=== PATIENT | female | born 1960 | race Caucasian/White ===

== ENCOUNTER → 2018-06-11 07:37 | Outpatient (CLI) | payer MEDICARE, SELFPAY ==
[2017-02-18 11:18] VITALS: BMI 37.9
--- NOTE | 2018-06-11 07:44 | CT_ITS ---
STUDY: CTA NECK WITH CONTRAST REASON FOR EXAM: Female, 58 years old. Left carotid bruit. Prior left carotid endarterectomy. RADIATION DOSAGE (If Supplied By Facility): CTDIvol = ( 22.30 ) mGy, DLP = ( 654.52 ) mGycm TECHNIQUE: CT angiography with multi-detector data acquisition was performed from the aortic arch to the skull base following intravenous administration of 100CC ml of Isovue 370 contrast. MIP images were reconstructed from the axial data set. Post-processing of the angiographic images was performed, with multiplanar reformation and 3D reconstruction. Individualized dose optimization techniques were used for this CT. COMPARISON: Comparison is made with prior examination dated May 05, 2017. FINDINGS: Prior CABG. There is a 1.4 cm x 1.6 cm predominantly cystic nodule in the left lobe of the thyroid. AORTIC ARCH: There is atherosclerotic calcific plaque formation of the aortic arch and great vessels arising from the aortic arch, without a hemodynamically significant stenosis. There is a normal origin of the brachiocephalic, left common carotid, and left subclavian arteries. RIGHT CAROTID ARTERIES: Normal right common carotid artery (CCA). Normal right common carotid bulb. There is extensive atherosclerotic plaque formation of the origin of the right internal carotid artery with an estimated stenosis of greater than 70%. Normal visualized cervical portion of the right internal carotid artery. Normal origin of the right external carotid artery (ECA). LEFT CAROTID ARTERIES: Normal left common carotid artery (CCA). Normal left common carotid bulb. There is complete occlusion of the origin of the left internal carotid artery without demonstrated arterial flow. Normal visualized cervical portion of the left internal carotid artery. Normal origin of the left external carotid artery (ECA). VERTEBRAL ARTERIES: There is enhancement within the bilateral vertebral arteries with a small right vertebral artery, and a dominant left vertebral artery. Focal nonstenotic plaque is seen in the proximal portion of the left vertebral artery. 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 Greater than 70% stenosis due to calcific plaque at the origin of the right internal carotid artery. Electronically Signed: Ortiz Sahu MD at 9:16 EDT Tel [phone], Service support ,
[2018-06-11 08:01] LABS: CREATININE FINGERSTICK 0.9 mg/dL (0.55-1.02); EGFR FINGERSTICK > 60.0000 mL/min (>60)
== END ==
PROVIDERS: Family Provider Family Medicine; PCP Family Medicine; Visit Provider Surgery Vascular Surgery
DX: Z01.812 Encounter for preprocedural laboratory examination (principal); I65.23 Occlusion and stenosis of bilateral carotid arteries; R09.89 Other specified symptoms and signs involving the circulatory and respiratory systems; I10 Essential (primary) hypertension; I51.9 Heart disease, unspecified; F17.210 Nicotine dependence, cigarettes, uncomplicated; Z86.73 Personal history of transient ischemic attack (TIA), and cerebral infarction without residual deficits
CPT/HCPCS: 70498; Q9967

== ENCOUNTER 2018-06-25 08:05 | Outpatient (RCR) | payer MEDICARE, SELFPAY ==
[2017-02-18 11:18] VITALS: BMI 37.9
[2018-06-16 09:56] LABS: Prothrombin Time Fingerstick 40.8 SEC (11.9-14.4)
[2018-06-25 08:21] LABS: Prothrombin Time Fingerstick 37.3 SEC (11.9-14.4)
== END 2018-06-25 09:00 | disposition home or self-care (01) ==
LOC: MTLAB 08:05
PROVIDERS: Family Provider Family Medicine; PCP Family Medicine; Visit Provider Family Medicine
DX: I48.91 Unspecified atrial fibrillation (principal)
CPT/HCPCS: 36416; 85610

== ENCOUNTER 2018-07-27 09:42 | Outpatient (RCR) | payer MEDICARE, SELFPAY ==
[2017-02-18 11:18] VITALS: BMI 37.9
[2018-07-09 08:56] LABS: Prothrombin Time Fingerstick 35.9 SEC (11.9-14.4)
[2018-07-27 09:56] LABS: Prothrombin Time Fingerstick 29.5 SEC (11.9-14.4)
== END 2018-07-27 11:00 | disposition home or self-care (01) ==
LOC: MTLAB 09:42
PROVIDERS: Family Provider Family Medicine; PCP Family Medicine; Referring Provider Family Medicine; Visit Provider Family Medicine
DX: I48.91 Unspecified atrial fibrillation (principal)
CPT/HCPCS: 36416; 85610

== ENCOUNTER 2018-08-17 08:53 | Outpatient (RCR) | payer MEDICARE, SELFPAY ==
[2017-02-18 11:18] VITALS: BMI 37.9
[2018-08-17 09:06] LABS: Prothrombin Time Fingerstick 32.9 SEC (11.9-14.4)
== END 2018-08-17 09:00 | disposition home or self-care (01) ==
LOC: MTLAB 08:53
PROVIDERS: Family Provider Family Medicine; PCP Family Medicine; Referring Provider Family Medicine; Visit Provider Family Medicine
DX: I48.91 Unspecified atrial fibrillation (principal)
CPT/HCPCS: 36416; 85610

== ENCOUNTER 2018-09-18 09:45 | Outpatient (RCR) | payer MEDICARE, SELFPAY ==
[2017-02-18 11:18] VITALS: BMI 37.9
[2018-09-18 10:06] LABS: Prothrombin Time Fingerstick 24.5 SEC (11.9-14.4)
== END 2018-09-18 10:00 | disposition home or self-care (01) ==
LOC: MTLAB 09:45
PROVIDERS: Family Provider Family Medicine; PCP Family Medicine; Referring Provider Family Medicine; Visit Provider Family Medicine
DX: I48.91 Unspecified atrial fibrillation (principal)
CPT/HCPCS: 36416; 85610

== ENCOUNTER 2018-10-22 09:26 | Outpatient (RCR) | payer MEDICARE, SELFPAY ==
[2017-02-18 11:18] VITALS: BMI 37.9
[2018-10-22 09:46] LABS: Prothrombin Time Fingerstick 28.5 SEC (11.9-14.4)
== END 2018-10-22 11:00 | disposition home or self-care (01) ==
LOC: MTLAB 09:26
PROVIDERS: Family Provider Family Medicine; PCP Family Medicine; Referring Provider Family Medicine; Visit Provider Family Medicine
DX: I48.91 Unspecified atrial fibrillation (principal)
CPT/HCPCS: 36416; 85610

== ENCOUNTER 2018-11-16 09:37 | Outpatient (RCR) | payer MEDICARE, SELFPAY ==
[2017-02-18 11:18] VITALS: BMI 37.9
[2018-11-16 09:51] LABS: Prothrombin Time Fingerstick 31.1 SEC (11.9-14.4)
== END 2018-11-26 15:03 | disposition home or self-care (01) ==
LOC: MTLAB 09:37
PROVIDERS: Family Provider Family Medicine; PCP Family Medicine; Referring Provider Family Medicine; Visit Provider Family Medicine
DX: I48.91 Unspecified atrial fibrillation (principal)
CPT/HCPCS: 36416; 85610

== ENCOUNTER 2018-12-17 08:36 | Outpatient (RCR) | payer MEDICARE, SELFPAY ==
[2017-02-18 11:18] VITALS: BMI 37.9
[2018-12-17 08:51] LABS: Prothrombin Time Fingerstick 30.5 SEC (11.9-14.4)
== END 2018-12-17 09:00 | disposition home or self-care (01) ==
LOC: MTLAB 08:36
PROVIDERS: Family Provider Family Medicine; PCP Family Medicine; Referring Provider Family Medicine; Visit Provider Family Medicine
DX: I48.91 Unspecified atrial fibrillation (principal)
CPT/HCPCS: 36416; 85610

== ENCOUNTER 2019-01-11 09:44 | Outpatient (RCR) | payer MEDICARE, SELFPAY ==
[2017-02-18 11:18] VITALS: BMI 37.9
[2019-01-11 10:01] LABS: Prothrombin Time Fingerstick 28.1 SEC (11.9-14.4)
== END 2019-01-26 16:00 | disposition home or self-care (01) ==
LOC: MTLAB 09:44
PROVIDERS: Family Provider Family Medicine; PCP Family Medicine; Referring Provider Family Medicine; Visit Provider Family Medicine
DX: I48.91 Unspecified atrial fibrillation (principal)
CPT/HCPCS: 36416; 85610

== ENCOUNTER 2019-02-08 09:27 | Outpatient (RCR) | payer MEDICARE, SELFPAY ==
[2017-02-18 11:18] VITALS: BMI 37.9
[2019-02-08 09:46] LABS: Prothrombin Time Fingerstick 28.1 SEC (11.9-14.4)
== END 2019-02-08 11:00 | disposition home or self-care (01) ==
LOC: MTLAB 09:27
PROVIDERS: Family Provider Family Medicine; PCP Family Medicine; Referring Provider Family Medicine; Visit Provider Family Medicine
DX: I48.91 Unspecified atrial fibrillation (principal)
CPT/HCPCS: 36416; 85610

== ENCOUNTER 2019-03-08 09:41 | Outpatient (RCR) | payer MEDICARE, SELFPAY ==
[2017-02-18 11:18] VITALS: BMI 37.9
[2019-03-08 09:56] LABS: Prothrombin Time Fingerstick 28.1 SEC (11.9-14.4)
== END 2019-03-08 10:00 | disposition home or self-care (01) ==
LOC: MTLAB 09:41
PROVIDERS: Family Provider Family Medicine; PCP Family Medicine; Referring Provider Family Medicine; Visit Provider Family Medicine
DX: I48.91 Unspecified atrial fibrillation (principal)
CPT/HCPCS: 36416; 85610

== ENCOUNTER 2019-04-05 09:09 | Outpatient (RCR) | payer MEDICARE, SELFPAY ==
[2017-02-18 11:18] VITALS: BMI 37.9
[2019-04-05 09:31] LABS: Prothrombin Time Fingerstick 29.9 SEC (11.9-14.4)
== END 2019-04-05 09:30 | disposition home or self-care (01) ==
LOC: MTLAB 09:09
PROVIDERS: Family Provider Family Medicine; PCP Family Medicine; Referring Provider Family Medicine; Visit Provider Family Medicine
DX: I48.91 Unspecified atrial fibrillation (principal); Z79.01 Long term (current) use of anticoagulants
CPT/HCPCS: 36416; 85610

== ENCOUNTER 2019-05-03 09:22 | Outpatient (RCR) | payer MEDICARE, SELFPAY ==
[2017-02-18 11:18] VITALS: BMI 37.9
== END 2019-05-03 10:22 | disposition home or self-care (01) ==
LOC: MTLAB 09:22
PROVIDERS: Family Provider Family Medicine; PCP Family Medicine; Referring Provider Family Medicine; Visit Provider Family Medicine
DX: I48.91 Unspecified atrial fibrillation (principal); Z79.01 Long term (current) use of anticoagulants
CPT/HCPCS: 36416; 85610

== ENCOUNTER → 2019-06-29 09:44 | Outpatient (CLI) | payer MEDICARE, SELFPAY ==
[2017-02-18 11:18] VITALS: BMI 37.9
--- NOTE | 2019-06-29 09:46 | CDU_ITS ---
Reason For Study: stroke Rt. Velocities/BP Lt. Velocities/BP Prox CCA 85.2/20.0 cm/sec. Prox CCA 124.7/17.0 cm/sec. Mid CCA 78.6/23.9 cm/sec. Mid CCA 112.0/18.8 cm/sec. Dist CCA 87.8/14.7 cm/sec. Dist CCA 110.1/24.3 cm/sec. Prox ICA 167.4/53.3 cm/sec. Prox ECA 144.8/13.3 cm/sec. Mid ICA 346.4/134.5 cm/sec. Lt. Vert. 55.3/23.4 cm/sec. Dist ICA 4.4 cm/sec. Prox ECA 198.2/13.8 cm/sec. Rt. Vert. 35.5/6.9 cm/sec. Right Extracranial There is heterogeneous, irregular atherosclerotic plaque noted in the right common carotid artery. There is heterogeneous, irregular atherosclerotic plaque noted in the right internal carotid artery. There is heterogeneous, irregular atherosclerotic plaque noted in the right external carotid artery. Antegrade flow is noted in the right vertebral artery. There is heterogeneous, irregular atherosclerotic plaque noted in the right bulb. Left Extracranial There is heterogeneous, irregular atherosclerotic plaque noted in the left common carotid artery. There is heterogeneous, irregular atherosclerotic plaque noted in the left internal carotid artery. There is heterogeneous, irregular atherosclerotic plaque noted in the left external carotid artery. Antegrade flow is noted in the left vertebral artery. There is heterogeneous, irregular atherosclerotic plaque noted in the left bulb. Procedure Carotid Duplex 30307. The exam was diagnostic. Prelim called to Dr. Child. Exam performed in department. Interpretation Summary Severe (>70%) stenosis right extracranial internal carotid. The left internal carotid artery appears to be totally occluded. Flow within the vertebral arteries is antegrade bilaterally. Ordering Physician: Momo Child Performed By: Sebastian Briceno RVT
--- NOTE | 2019-06-29 09:47 | ART_ITS ---
Reason For Study: atherosclerosis with claudication Procedure A bilateral lower extremity continuous wave Doppler with analog waveform analysis and ankle brachial indexes. Prelim called to Dr. Child. Left Segmental Pressures Left brachial= 134mmHg. Left posterior tibial artery = 87mmHg. Left dorsalis pedis artery = 84mmHg. Left digit = 48 mmHg. The left dorsalis pedis waveforms are monophasic. The left posterior tibial artery waveforms are monophasic. Right Segmental Pressures Right brachial= 121mmHg. Right posterior tibial artery = 67mmHg. Right dorsalis pedis artery = 60mmHg. Right digit = 42 mmHg. The right dorsalis pedis waveforms are monophasic. The right posterior tibial artery waveforms are monophasic. Indices The right ankle brachial index by the dorsalis pedis is .45. The right ankle brachial index by the posterior tibial artery is .5. The right digital-brachial index is .31. The left ankle brachial index by the dorsalis pedis is .63. The left ankle brachial index by the posterior tibial artery is .65. The left digital-brachial index is .36. Interpretation Summary 1. bilateral moderate arterial occlussive diase wiht an JESSICA 0.5 and 0.65. Ordering Physician: Momo Child Performed By: FERN GAGNON T
== END ==
PROVIDERS: Family Provider Family Medicine; PCP Family Medicine; Referring Provider Surgery Vascular Surgery; Visit Provider Surgery Vascular Surgery
DX: R09.89 Other specified symptoms and signs involving the circulatory and respiratory systems (principal); F17.210 Nicotine dependence, cigarettes, uncomplicated; I11.9 Hypertensive heart disease without heart failure; I65.23 Occlusion and stenosis of bilateral carotid arteries; I70.213 Atherosclerosis of native arteries of extremities with intermittent claudication, bilateral legs; Z86.73 Personal history of transient ischemic attack (TIA), and cerebral infarction without residual deficits; I48.91 Unspecified atrial fibrillation; Z79.01 Long term (current) use of anticoagulants
CPT/HCPCS: 36416; 85610; 93880; 93922

== ENCOUNTER 2019-07-21 09:53 | Outpatient (RCR) | payer MEDICARE, SELFPAY ==
[2017-02-18 11:18] VITALS: BMI 37.9
[2019-07-21 10:01] LABS: Prothrombin Time Fingerstick 24.9 SEC (11.9-14.4)
== END 2019-07-21 18:00 | disposition home or self-care (01) ==
LOC: MTLAB 09:53
PROVIDERS: Family Provider Family Medicine; PCP Family Medicine; Referring Provider Family Medicine; Visit Provider Family Medicine
DX: I48.91 Unspecified atrial fibrillation (principal); Z79.01 Long term (current) use of anticoagulants
CPT/HCPCS: 36416; 85610

== ENCOUNTER → 2019-07-31 10:14 | Outpatient (CLI) | payer MEDICARE, SELFPAY ==
[2017-02-18 11:18] VITALS: BMI 37.9
[2019-07-31 11:53] LABS: Creatinine, Serum 0.67 mg/dL (0.55-1.02); EST Glomerular Filtration Rate 97 mL/min (>60); Est Glom Filt Rate - Afr Amer 117 mL/min (>60)
== END ==
PROVIDERS: Family Provider Family Medicine; PCP Family Medicine; Referring Provider Surgery Vascular Surgery; Visit Provider Surgery Vascular Surgery
DX: I65.23 Occlusion and stenosis of bilateral carotid arteries (principal); R09.89 Other specified symptoms and signs involving the circulatory and respiratory systems
CPT/HCPCS: 36415; 82565

== ENCOUNTER 2019-08-12 10:57 | Outpatient (RCR) | payer MEDICARE, SELFPAY ==
[2017-02-18 11:18] VITALS: BMI 37.9
[2019-08-12 12:38] LABS: Prothrombin Time Fingerstick 26.1 SEC (11.9-14.4)
== END 2019-08-12 18:00 | disposition home or self-care (01) ==
LOC: MTLAB 10:57
PROVIDERS: Family Provider Family Medicine; PCP Family Medicine; Referring Provider Family Medicine; Visit Provider Family Medicine
DX: I48.91 Unspecified atrial fibrillation (principal)
CPT/HCPCS: 36416; 85610

== ENCOUNTER → 2019-08-13 08:05 | Outpatient (CLI) | payer MEDICARE, SELFPAY ==
[2017-02-18 11:18] VITALS: BMI 37.9
--- NOTE | 2019-08-13 08:08 | CT_ITS ---
STUDY: CTA NECK WITH CONTRAST REASON FOR EXAM: Female, 59 years old. Carotid bruit. History of prior left carotid endarterectomy. RADIATION DOSAGE (If Supplied By Facility): CTDIvol = ( 22.72 ) mGy, DLP = ( 695.31 ) mGycm TECHNIQUE: CT angiography with multi-detector data acquisition was performed from the aortic arch to the skull base following intravenous administration of IV Isovue 370 100mL. MIP images were reconstructed from the axial data set. Post-processing of the angiographic images was performed, with multiplanar reformation and 3D reconstruction. Individualized dose optimization techniques were used for this CT. COMPARISON: Comparison is made with prior examination dated June 11, 2018. FINDINGS: There is a 9.1 mm hypodensity in the left lobe of the thyroid. AORTIC ARCH: There is atherosclerotic calcific plaque formation of the aortic arch and great vessels arising from the aortic arch, without a hemodynamically significant stenosis. Nonstenotic atherosclerotic calcific plaque at the origin of the left subclavian artery and right brachiocephalic artery. RIGHT CAROTID ARTERIES: Normal right common carotid artery (CCA). Normal right common carotid bulb. There is extensive atherosclerotic plaque formation of the origin of the right internal carotid artery with an estimated stenosis of greater than 70%. Normal visualized cervical portion of the right internal carotid artery. Normal origin of the right external carotid artery (ECA). LEFT CAROTID ARTERIES: Normal left common carotid artery (CCA). Normal left common carotid bulb. There is complete occlusion of the origin of the left internal carotid artery without demonstrated arterial flow. There is complete occlusion of the origin of the left external carotid artery without demonstrated arterial flow. VERTEBRAL ARTERIES: Nonstenotic calcific plaque in the proximal portion of the left vertebral artery. Dominant left vertebral artery. CT/CTA Neck W/WO Contrast IMPRESSION: Complete occlusion of the left internal carotid artery at its origin. Greater than 70% stenosis at the origin of the right internal carotid artery. Electronically Signed: Ortiz Sahu, at 10:32 EST , Service support ,
== END ==
PROVIDERS: Family Provider Family Medicine; PCP Family Medicine; Referring Provider Surgery Vascular Surgery; Visit Provider Surgery Vascular Surgery
DX: R09.89 Other specified symptoms and signs involving the circulatory and respiratory systems (principal); I65.23 Occlusion and stenosis of bilateral carotid arteries
CPT/HCPCS: 70498; Q9967

== ENCOUNTER 2019-09-10 07:12 | Outpatient (RCR) | payer MEDICARE, SELFPAY ==
[2017-02-18 11:18] VITALS: BMI 37.9
[2019-09-10 15:06] LABS: Prothrombin Time Fingerstick 27.9 SEC (11.9-14.4)
== END 2019-09-10 18:00 | disposition home or self-care (01) ==
LOC: MTLAB 07:12
PROVIDERS: Family Provider Family Medicine; PCP Family Medicine; Referring Provider Family Medicine; Visit Provider Family Medicine
DX: I48.91 Unspecified atrial fibrillation (principal)
CPT/HCPCS: 36416; 85610

== ENCOUNTER → 2019-10-13 06:34 | Outpatient (CLI) | payer MEDICARE, SELFPAY ==
[2017-02-18 11:18] VITALS: BMI 37.9
[2019-09-24 11:19] VITALS: BMI 41.6
--- NOTE | 2019-10-13 06:34 | ECHOCS_ITS ---
Reason For Study: S/P CABG Procedure This was a 2D Doppler, Color Flow transthoracic echocardiogram. The study was technically difficult. Contrast injection was performed. Exam performed in department. Left Ventricle Normal LV size. Left ventricular systolic function is normal. The estimated ejection fraction is 55 %. No regional wall motion abnormalities noted. Right Ventricle Normal RV size. Normal systolic function. Atria Normal left atrium. Normal right atrium. Mitral Valve Mitral valve not well visualized. Tricuspid Valve The tricuspid valve is not well visualized. Mild (1+) tricuspid valve insufficiency. Pulmonary artery systolic pressure is 36 mmHg. Aortic Valve Trisinus/trileaflet aortic valve. Mild focal aortic valve calcification. Pulmonic Valve The pulmonic valve is not well visualized. Great Vessels Normal aortic root. Pericardium/Pleural No pericardial effusion. Medication Diluted definity 5.0ml given slow IV push to enhance endocardial definition. MMode/2D Measurements & Calculations LVIDd: 4.8 cm IVSd: 0.95 cm LVOT diam: 2.0 cm LVIDs: 3.5 cm LVPWd: 1.0 cm RVDd: 4.0 cm FS: 27.2 % LVOT area: 3.0 cm2 Ao root diam: 3.3 cm LAV(MOD-bp): 51.8 ml LVAd ap4: 31.3 cm2 LAV(MOD-bp) Indexed: 23.4 ml/m2 EDV(MOD-sp4): 105.2 ml LAV(MOD-sp2): 57.5 ml EDV(sp4-el): 108.4 ml LAV(MOD-sp4): 45.1 ml LVAs ap4: 18.6 cm2 ESV(MOD-sp4): 43.9 ml ESV(sp4-el): 45.7 ml EF(MOD-sp4): 58.2 % EF(sp4-el): 57.9 % SV(MOD-sp4): 61.2 ml SV(sp4-el): 62.7 ml LA A4 area: 17.1 cm2 LA dimension(2D): 5.4 cm RA A4 area: 16.5 cm2 Doppler Measurements & Calculations Ao V2 max: 149.9 cm/sec LV V1 max: 101.3 cm/sec PA V2 max: 100.5 cm/sec Ao max P.0 mmHg LV V1 max P.1 mmHg NORMA(V,D): 2.0 cm2 TR max korin: 283.2 cm/sec TR max P.8 mmHg Interpretation Summary Normal LV size. Left ventricular systolic function is normal. The estimated ejection fraction is 55 %. Mild focal aortic valve calcification. Pulmonary artery systolic pressure is 36 mmHg. Contrast injection was performed. Ordering Physician: Orville Tsai Referring Physician: INDIA TAN By: Katelyn Jean Baptiste, PRICECS, RVT
--- NOTE | 2019-10-13 14:24 | STRESSREP ---
Stress Test Report Pharmacologic myocardial perfusion stress test. 59-year-old lady with a history of diabetes status post coronary artery bypass surgery. Previous stress test had demonstrated evidence of apical ischemia. Stress protocol: Resting EKG demonstrates atrial fibrillation with a rate of 85 bpm normal intervals are noted resting blood pressure is 140/80 mmHg. 0.4 mg of regadenoson was infused per usual protocol followed Intravenous and flush injection continuous telegraph office telephone clerk was performed. The maximum heart rate attained was 100 bpm which was 61% of maximum predicted heart rate the maximum workload was 1 metabolic equivalent. At rest there were no ST or T wave changes noted suggest abnormal flow reserve a peak infusion nonspecific ST-T wave changes were noted with no meet the criteria for ischemia. No clinical angina was noted. The resting blood pressure is 140/80 mmHg final blood pressure was 152/70 mmHg. Myocardial perfusion protocol. 14.5 mCi of technetium 99m sestamibi was injected at rest. 0.4 mg of regadenoson was infused per usual protocol peak infusion 45.0 mCi of technetium 99m sestamibi was injected stress images were obtained stress and rest images were reconstructed and compared in the short axis vertical long horizontal long axis. Gated images were also obtained Perfusion SPECT analysis: Review of the stress images demonstrate normal uptake of tracer noted in all areas of the myocardium, except for the apex with reduced perfusion. The resting images similar demonstrate normal uptake of tracer noted in all areas of the myocardium. The above suggests a mild area of ischemia involving the apex. In comparison to the previous stress test the above findings are unchanged. Gated SPECT analysis: The gated ejection fraction is noted to be 61%. Conclusion: Mildly abnormal pharmacologic myocardial perfusion stress test with evidence of apical ischemia. Preserved ejection fraction. In comparison to previous stress test the above is unchanged.
== END ==
LOC: CVS 06:34
PROVIDERS: Family Provider Family Medicine; PCP Family Medicine; Referring Provider Internal Medicine Cardiovascular Disease; Visit Provider Internal Medicine Cardiovascular Disease
DX: I25.810 Atherosclerosis of coronary artery bypass graft(s) without angina pectoris (principal); I25.10 Atherosclerotic heart disease of native coronary artery without angina pectoris; Z95.1 Presence of aortocoronary bypass graft
CPT/HCPCS: 78452; 93017; 93306; A9500; Q9957; A4216; C8929; J2785

== ENCOUNTER 2019-10-15 11:21 | Outpatient (RCR) | payer MEDICARE, SELFPAY ==
[2017-02-18 11:18] VITALS: BMI 37.9
[2019-09-24 11:19] VITALS: BMI 41.6
[2019-10-18 13:56] LABS: Prothrombin Time Fingerstick 26.1 SEC (11.9-14.4)
== END 2019-10-15 18:00 | disposition home or self-care (01) ==
LOC: MTLAB 11:21
PROVIDERS: Family Provider Family Medicine; PCP Family Medicine; Referring Provider Family Medicine; Visit Provider Family Medicine
DX: I48.91 Unspecified atrial fibrillation (principal)
CPT/HCPCS: 36416; 85610

== ENCOUNTER 2019-11-12 09:47 | Outpatient (RCR) | payer MEDICARE, SELFPAY ==
[2017-02-18 11:18] VITALS: BMI 37.9
[2019-09-24 11:19] VITALS: BMI 41.6
== END 2019-11-12 18:00 | disposition home or self-care (01) ==
LOC: MTLAB 09:47
PROVIDERS: Family Provider Family Medicine; PCP Family Medicine; Referring Provider Family Medicine; Visit Provider Family Medicine
DX: I48.91 Unspecified atrial fibrillation (principal)
CPT/HCPCS: 36416; 85610

== ENCOUNTER 2020-01-07 08:06 | Outpatient (RCR) | payer MEDICARE, SELFPAY ==
[2017-02-18 11:18] VITALS: BMI 37.9
[2019-09-24 11:19] VITALS: BMI 41.6
== END 2020-01-27 18:00 | disposition home or self-care (01) ==
LOC: MTLAB 08:06
PROVIDERS: Family Provider Family Medicine; PCP Family Medicine; Referring Provider Family Medicine; Visit Provider Family Medicine
DX: I48.91 Unspecified atrial fibrillation (principal)
CPT/HCPCS: 36416; 85610

== ENCOUNTER 2020-02-04 11:30 | Outpatient (RCR) | payer MEDICARE, SELFPAY ==
[2017-02-18 11:18] VITALS: BMI 37.9
[2019-09-24 11:19] VITALS: BMI 41.6
== END 2020-02-04 18:00 | disposition home or self-care (01) ==
LOC: MTLAB 11:30
PROVIDERS: Family Provider Family Medicine; PCP Family Medicine; Referring Provider Family Medicine; Visit Provider Family Medicine
DX: I48.91 Unspecified atrial fibrillation (principal)
CPT/HCPCS: 36416; 85610

== ENCOUNTER 2020-03-03 10:08 | Outpatient (RCR) | payer MEDICARE, SELFPAY ==
[2017-02-18 11:18] VITALS: BMI 37.9
[2019-09-24 11:19] VITALS: BMI 41.6
[2020-03-06 16:45] LABS: Prothrombin Time Fingerstick 30.6 SEC (11.9-14.4)
== END 2020-03-03 18:00 | disposition home or self-care (01) ==
LOC: MTLAB 10:08
PROVIDERS: Family Provider Family Medicine; PCP Family Medicine; Referring Provider Family Medicine; Visit Provider Family Medicine
DX: I48.91 Unspecified atrial fibrillation (principal)
CPT/HCPCS: 36416; 85610

== ENCOUNTER 2020-04-28 07:55 | Outpatient (RCR) | payer MEDICARE, SELFPAY ==
[2017-02-18 11:18] VITALS: BMI 37.9
[2019-09-24 11:19] VITALS: BMI 41.6
[2020-04-03 14:55] LABS: Prothrombin Time Fingerstick 30.9 SEC (11.9-14.4)
[2020-05-03 16:36] LABS: Prothrombin Time Fingerstick 23.9 SEC (11.9-14.4)
== END 2020-04-28 18:00 | disposition home or self-care (01) ==
LOC: MTLAB 07:55
PROVIDERS: Family Provider Family Medicine; PCP Family Medicine; Referring Provider Family Medicine; Visit Provider Family Medicine
DX: I48.91 Unspecified atrial fibrillation (principal)
CPT/HCPCS: 36416; 85610

== ENCOUNTER 2020-06-09 08:03 | Outpatient (RCR) | payer MEDICARE, SELFPAY ==
[2017-02-18 11:18] VITALS: BMI 37.9
[2019-09-24 11:19] VITALS: BMI 41.6
[2020-06-09 10:13] LABS: Vitamin D,25 Hydroxy 36.6 ng/mL
[2020-06-09 10:14] LABS: ALB/GLOB Ratio 0.9 RATIO (0.9-2.4); AST(SGOT) 19 U/L (15-37); Alanine Aminotransfer ALT/SGPT 27 U/L (13-56); Albumin, Serum 3.5 g/dL (3.2-5.0); Alkaline Phosphatase 90 U/L (45-117); Anion Gap 7 (5-15); BUN 12 mg/dL (7-18); BUN/Creat Ratio 17.3 RATIO (10-20); Chloride 101 mmol/L (98-107); Cholesterol 211 mg/dL (200); Creatinine, Serum 0.69 mg/dL (0.55-1.02); EST Glomerular Filtration Rate 93 mL/min (>60); Est Glom Filt Rate - Afr Amer 112 mL/min (>60); Glucose 130 mg/dL (74-106); High Density Lipoprotein 38 mg/dL; Potassium 4.1 mmol/L (3.5-5.1); Protein, Total 7.5 g/dL (6.4-8.2); Sodium Level 134 mmol/L (136-145); Triglycerides 194 mg/dL; Very Low Density Lipoprotein 39 mg/dL (5-40)
[2020-06-09 10:24] LABS: International Normalized Ratio 2.1; Prothrombin Time (Protime)PT. 22.7 SECONDS (11.7-14.9)
== END 2020-06-09 18:00 | disposition home or self-care (01) ==
LOC: MTLAB 08:03
PROVIDERS: Family Provider Family Medicine; PCP Family Medicine; Referring Provider Family Medicine; Visit Provider Family Medicine
DX: I48.91 Unspecified atrial fibrillation (principal); E78.2 Mixed hyperlipidemia; E55.9 Vitamin D deficiency, unspecified; I10 Essential (primary) hypertension
CPT/HCPCS: 36415; 80053; 80061; 82306; 85610

== ENCOUNTER 2020-07-13 13:59 | Outpatient (RCR) | payer MEDICARE, SELFPAY ==
[2017-02-18 11:18] VITALS: BMI 37.9
[2019-09-24 11:19] VITALS: BMI 41.6
== END 2020-07-13 18:00 | disposition home or self-care (01) ==
LOC: MTLAB 13:59
PROVIDERS: Family Provider Family Medicine; PCP Family Medicine; Referring Provider Family Medicine; Visit Provider Family Medicine
DX: I48.91 Unspecified atrial fibrillation (principal)
CPT/HCPCS: 36416; 85610

== ENCOUNTER 2020-08-11 07:23 | Outpatient (RCR) | payer MEDICARE, SELFPAY ==
[2017-02-18 11:18] VITALS: BMI 37.9
[2019-09-24 11:19] VITALS: BMI 41.6
[2020-08-11 07:35] LABS: Prothrombin Time Fingerstick 34.7 SEC (11.9-14.4)
== END 2020-08-11 18:00 | disposition home or self-care (01) ==
LOC: MTLAB 07:23
PROVIDERS: Family Provider Family Medicine; PCP Family Medicine; Referring Provider Family Medicine; Visit Provider Family Medicine
DX: I48.91 Unspecified atrial fibrillation (principal)
CPT/HCPCS: 36416; 85610

== ENCOUNTER 2020-09-01 12:56 | Outpatient (RCR) | payer MEDICARE, SELFPAY ==
[2017-02-18 11:18] VITALS: BMI 37.9
[2019-09-24 11:19] VITALS: BMI 41.6
[2020-09-01 13:21] LABS: Prothrombin Time Fingerstick 34.4 SEC (11.9-14.4)
== END 2020-09-01 18:00 | disposition home or self-care (01) ==
LOC: MTLAB 12:56
PROVIDERS: Family Provider Family Medicine; PCP Family Medicine; Referring Provider Family Medicine; Visit Provider Family Medicine
DX: I48.91 Unspecified atrial fibrillation (principal)
CPT/HCPCS: 36416; 85610

== ENCOUNTER 2020-10-02 15:03 | Outpatient (RCR) | payer MEDICARE, SELFPAY ==
[2017-02-18 11:18] VITALS: BMI 37.9
[2019-09-24 11:19] VITALS: BMI 41.6
[2020-10-02 15:26] LABS: Prothrombin Time Fingerstick 32.2 SEC (11.9-14.4)
== END 2020-10-02 18:00 | disposition home or self-care (01) ==
LOC: MTLAB 15:03
PROVIDERS: Family Provider Family Medicine; PCP Family Medicine; Referring Provider Family Medicine; Visit Provider Family Medicine
DX: I48.91 Unspecified atrial fibrillation (principal)
CPT/HCPCS: 36416; 85610

== ENCOUNTER 2020-11-10 09:05 | Outpatient (RCR) | payer MEDICARE, SELFPAY ==
[2017-02-18 11:18] VITALS: BMI 37.9
[2019-09-24 11:19] VITALS: BMI 41.6
[2020-11-10 09:15] LABS: Prothrombin Time Fingerstick 26.1 SEC (11.9-14.4)
== END 2020-11-10 18:00 | disposition home or self-care (01) ==
LOC: MTLAB 09:05
PROVIDERS: Family Provider Family Medicine; PCP Family Medicine; Referring Provider Family Medicine; Visit Provider Family Medicine
DX: I48.91 Unspecified atrial fibrillation (principal)
CPT/HCPCS: 36416; 85610

== ENCOUNTER → 2020-12-22 08:45 | Outpatient (CLI) | payer MEDICARE, SELFPAY ==
[2017-02-18 11:18] VITALS: BMI 37.9
[2019-09-24 11:19] VITALS: BMI 41.6
--- NOTE | 2020-12-22 08:57 | CDU_ITS ---
Reason For Study: STROKE Rt. Velocities/BP Lt. Velocities/BP Prox CCA 82/29 cm/sec. Prox CCA 129/12 cm/sec. Mid CCA 89/21 cm/sec. Mid CCA 122/10 cm/sec. Dist CCA 62/20 cm/sec. Dist CCA 94/18 cm/sec. Prox ICA 81/29 cm/sec. While deleting unwanted images , some Mid ICA 93/40 cm/sec. doppler images of were deleted. Dist ICA 79/29 cm/sec. Velocities are recorded correctly. Rt. ICA/CCA = 1.0. Prox ECA 198/35 cm/sec. Prox ECA 512/220 cm/sec. Lt. Vert. 56/15 cm/sec. Rt. Vert. 46/12 cm/sec. Right Extracranial There is heterogeneous, irregular atherosclerotic plaque noted in the right common carotid artery. There is heterogeneous, smooth atherosclerotic plaque noted in the right internal carotid artery. There is homogeneous, smooth atherosclerotic plaque noted in the right external carotid artery. Antegrade flow is noted in the right vertebral artery. Left Extracranial There is homogeneous, smooth atherosclerotic plaque noted in the left common carotid artery. There is heterogeneous, irregular atherosclerotic plaque noted in the left internal carotid artery. The left internal carotid artery is occluded. There is homogeneous, smooth atherosclerotic plaque noted in the left external carotid artery. Antegrade flow is noted in the left vertebral artery. Procedure Carotid Duplex [id number]. The study was technically difficult. Exam performed in department. VL/Carotid Duplex Ultrasound Interpretation Summary Mild (<50%) stenosis right extracranial internal carotid. Flow within the verte bral arteries is antegrade bilaterally. Left internal carotid occluded. Ordering Physician: Momo Child Referring Physician: INDIA TAN Performed By: Katelyn Jean Baptiste, RDCS, RVT
--- NOTE | 2020-12-22 09:03 | ART_ITS ---
Reason For Study: ATHEROSCLEROSIS Procedure A bilateral lower extremity continuous wave Doppler with analog waveform analysis and ankle brachial indexes. Left Segmental Pressures Left brachial= 128mmHg. Left posterior tibial artery = 68mmHg. Left dorsalis pedis artery = 74mmHg. Left digit = 56 mmHg. The left dorsalis pedis waveforms are monophasic. The left posterior tibial artery waveforms are monophasic. Right Segmental Pressures Right brachial= 123mmHg. Right posterior tibial artery = 193mmHg. Right dorsalis pedis artery = 74mmHg. Right digit = 55 mmHg. The right dorsalis pedis waveforms are monophasic. The right posterior tibial artery waveforms are monophasic. Indices The right ankle brachial index by the dorsalis pedis is .58. The right ankle brachial index by the posterior tibial artery is .53. The right digital-brachial index is .44. The left ankle brachial index by the posterior tibial artery is 1.5. The left ankle brachial index by the dorsalis pedis is .58. The left digital-brachial index is .43. VL/Ankle Brachial Index Interpretation Summary Bilateral biphasic flow and moderate disease with rABI right 0.53 and 0.58. JESSICA left 1.51 falsely elvated and 0.58. DBI 0.44 and 0.43. Ordering Physician: Momo Child Referring Physician: INDIA TAN Performed By: MORENA HERMAN RDCS
== END ==
PROVIDERS: PCP Family Medicine; Referring Provider Surgery Vascular Surgery; Visit Provider Surgery Vascular Surgery
DX: I65.23 Occlusion and stenosis of bilateral carotid arteries (principal); I70.213 Atherosclerosis of native arteries of extremities with intermittent claudication, bilateral legs; I77.1 Stricture of artery; I11.9 Hypertensive heart disease without heart failure; F17.200 Nicotine dependence, unspecified, uncomplicated; Z86.73 Personal history of transient ischemic attack (TIA), and cerebral infarction without residual deficits
CPT/HCPCS: 93880; 93922

== ENCOUNTER 2021-01-03 10:27 | Outpatient (RCR) | payer MEDICARE, SELFPAY ==
[2017-02-18 11:18] VITALS: BMI 37.9
[2019-09-24 11:19] VITALS: BMI 41.6
[2021-01-03 10:41] LABS: INR Fingerstick 2.6; Prothrombin Time Fingerstick 29.3 SEC (11.9-14.4)
== END 2021-01-03 18:00 | disposition home or self-care (01) ==
LOC: LAB 10:27
PROVIDERS: Family Provider Family Medicine; PCP Family Medicine; Referring Provider Family Medicine; Visit Provider Family Medicine
DX: I48.91 Unspecified atrial fibrillation (principal)
CPT/HCPCS: 36416; 85610

== ENCOUNTER 2021-02-07 10:02 | Outpatient (RCR) | payer MEDICARE, SELFPAY ==
[2017-02-18 11:18] VITALS: BMI 37.9
[2019-09-24 11:19] VITALS: BMI 41.6
[2021-02-07 10:42] LABS: INR Fingerstick 3.1; Prothrombin Time Fingerstick 34.2 SEC (11.9-14.4)
== END 2021-02-07 18:00 | disposition home or self-care (01) ==
LOC: MTLAB 10:02
PROVIDERS: Family Provider Family Medicine; PCP Family Medicine; Referring Provider Family Medicine; Visit Provider Family Medicine
DX: I48.91 Unspecified atrial fibrillation (principal)
CPT/HCPCS: 36416; 85610

== ENCOUNTER 2021-03-27 07:09 | Outpatient (RCR) | payer MEDICARE, SELFPAY ==
[2017-02-18 11:18] VITALS: BMI 37.9
[2019-09-24 11:19] VITALS: BMI 41.6
[2021-03-01 09:20] LABS: Prothrombin Time Fingerstick 33.2 SEC (11.9-14.4)
[2021-03-27 07:20] LABS: INR Fingerstick 2.7; Prothrombin Time Fingerstick 29.6 SEC (11.9-14.4)
== END 2021-03-27 18:00 | disposition home or self-care (01) ==
LOC: MTLAB 07:09
PROVIDERS: Family Provider Family Medicine; PCP Family Medicine; Referring Provider Family Medicine; Visit Provider Family Medicine
DX: I48.91 Unspecified atrial fibrillation (principal)
CPT/HCPCS: 36416; 85610

== ENCOUNTER 2021-04-27 07:08 | Outpatient (RCR) | payer MEDICARE, SELFPAY ==
[2017-02-18 11:18] VITALS: BMI 37.9
[2019-09-24 11:19] VITALS: BMI 41.6
[2021-04-27 16:56] LABS: INR Fingerstick 2.3; Prothrombin Time Fingerstick 26.4 SEC (11.9-14.4)
== END 2021-04-27 18:00 | disposition home or self-care (01) ==
LOC: MTLAB 07:08
PROVIDERS: Family Provider Family Medicine; PCP Family Medicine; Referring Provider Family Medicine; Visit Provider Family Medicine
DX: I48.91 Unspecified atrial fibrillation (principal)
CPT/HCPCS: 36416; 85610

== ENCOUNTER 2021-05-25 07:12 | Outpatient (RCR) | payer MEDICARE, SELFPAY ==
[2017-02-18 11:18] VITALS: BMI 37.9
[2019-09-24 11:19] VITALS: BMI 41.6
[2021-05-25 13:35] LABS: INR Fingerstick 2.1
== END 2021-05-25 18:00 | disposition home or self-care (01) ==
LOC: MTLAB 07:12
PROVIDERS: Family Provider Family Medicine; PCP Family Medicine; Referring Provider Family Medicine; Visit Provider Family Medicine
DX: I48.91 Unspecified atrial fibrillation (principal)
CPT/HCPCS: 36416; 85610

== ENCOUNTER 2021-07-31 07:13 | Outpatient (RCR) | payer MEDICARE, SELFPAY ==
[2017-02-18 11:18] VITALS: BMI 37.9
[2021-05-30 01:38] VITALS: BMI 41.6
[2021-07-31 07:30] LABS: INR Fingerstick 2.4
== END 2021-08-28 18:00 | disposition home or self-care (01) ==
LOC: MTLAB 07:13
PROVIDERS: Family Provider Family Medicine; PCP Family Medicine; Referring Provider Family Medicine; Visit Provider Family Medicine
DX: I48.91 Unspecified atrial fibrillation (principal)
CPT/HCPCS: 36416; 85610

== ENCOUNTER 2021-08-30 07:18 | Outpatient (RCR) | payer MEDICARE, SELFPAY ==
[2017-02-18 11:18] VITALS: BMI 37.9
[2021-08-29 04:22] VITALS: BMI 41.6
[2021-08-30 07:30] LABS: INR Fingerstick 2.6; Prothrombin Time Fingerstick 28.6 SEC (11.9-14.4)
== END 2021-09-29 18:00 | disposition home or self-care (01) ==
LOC: MTLAB 07:18
PROVIDERS: Family Provider Family Medicine; PCP Family Medicine; Referring Provider Family Medicine; Visit Provider Family Medicine
DX: I48.91 Unspecified atrial fibrillation (principal)
CPT/HCPCS: 36416; 85610

== ENCOUNTER 2021-10-11 07:17 | Outpatient (RCR) | payer MEDICARE, SELFPAY ==
[2017-02-18 11:18] VITALS: BMI 37.9
[2021-09-30 21:08] VITALS: BMI 41.6
== END 2021-10-29 18:00 | disposition home or self-care (01) ==
LOC: MTLAB 07:17
PROVIDERS: Family Provider Family Medicine; PCP Family Medicine; Referring Provider Family Medicine; Visit Provider Family Medicine
DX: I48.91 Unspecified atrial fibrillation (principal)
CPT/HCPCS: 36416; 85610

== ENCOUNTER 2021-11-20 07:06 | Outpatient (RCR) | payer MEDICARE, SELFPAY ==
[2017-02-18 11:18] VITALS: BMI 37.9
[2021-10-30 02:39] VITALS: BMI 41.6
[2021-11-20 07:21] LABS: INR Fingerstick 1.8; Prothrombin Time Fingerstick 21.2 SEC (11.9-14.4)
== END 2021-11-20 18:00 | disposition home or self-care (01) ==
LOC: MTLAB 07:06
PROVIDERS: Family Provider Family Medicine; PCP Family Medicine; Referring Provider Family Medicine; Visit Provider Family Medicine
DX: I48.91 Unspecified atrial fibrillation (principal)
CPT/HCPCS: 36416; 85610

== ENCOUNTER 2022-01-10 07:28 | Outpatient (RCR) | payer MEDICARE, SELFPAY ==
[2017-02-18 11:18] VITALS: BMI 37.9
[2021-11-27 10:50] VITALS: BMI 41.6
[2021-12-06 10:17] LABS: International Normalized Ratio 2.3; Prothrombin Time (Protime)PT. 24.5 SECONDS (11.7-14.9)
[2021-12-06 10:36] LABS: Hemoglobin A1c 7.7 % (3.8-5.6)
[2021-12-06 10:46] LABS: ALB/GLOB Ratio 0.8 RATIO (0.9-2.4); AST(SGOT) 24 U/L (15-37); Alanine Aminotransfer ALT/SGPT 29 U/L (13-56); Albumin, Serum 3.5 g/dL (3.2-5.0); Alkaline Phosphatase 94 U/L (45-117); Anion Gap 8 (5-15); BUN 11 mg/dL (7-18); BUN/Creat Ratio 15.3 RATIO (10-20); Calcium,Total 9.5 mg/dL (8.5-10.1); Chloride 100 mmol/L (98-107); Cholesterol 209 mg/dL (200); Creatinine, Serum 0.72 mg/dL (0.55-1.02); EST Glomerular Filtration Rate 88 mL/min (>60); Est Glom Filt Rate - Afr Amer 106 mL/min (>60); Globulin 4.3 g/dL (2.2-4.2); Glucose 147 mg/dL (74-106); High Density Lipoprotein 41 mg/dL; Potassium 4.3 mmol/L (3.5-5.1); Protein, Total 7.8 g/dL (6.4-8.2); Sodium Level 135 mmol/L (136-145); Triglycerides 157 mg/dL; Very Low Density Lipoprotein 31 mg/dL (5-40)
[2022-01-10 07:41] LABS: INR Fingerstick 2.2
== END 2022-01-10 18:00 ==
LOC: MTLAB 07:28
PROVIDERS: Family Provider Family Medicine; PCP Family Medicine; Referring Provider Family Medicine; Visit Provider Family Medicine
DX: I48.91 Unspecified atrial fibrillation (principal)
CPT/HCPCS: 36415; 36416; 80053; 80061; 83036; 85610

== ENCOUNTER 2022-01-31 07:07 | Outpatient (RCR) | payer MEDICARE, SELFPAY ==
[2017-02-18 11:18] VITALS: BMI 37.9
[2022-01-27 05:16] VITALS: BMI 41.6
[2022-01-31 07:16] LABS: Prothrombin Time Fingerstick 23.9 SEC (11.7-14.9)
== END 2022-01-31 18:00 | disposition home or self-care (01) ==
LOC: MTLAB 07:07
PROVIDERS: Family Provider Family Medicine; PCP Family Medicine; Referring Provider Family Medicine; Visit Provider Family Medicine
DX: I48.91 Unspecified atrial fibrillation (principal)
CPT/HCPCS: 36416; 85610

== ENCOUNTER → 2022-03-18 | Outpatient (CLI) | payer MEDICARE, SELFPAY ==
[2017-02-18 11:18] VITALS: BMI 37.9
--- NOTE | 2022-03-18 07:52 | AAVD_ITS ---
Reason For Study: Smoker, PVD Aorta Measurements Aorta Doppler Measurements Proximal aorta measures2.04cm x 2.21cm. in cross- Peak systolic flow velocities within the proximal sectional axis. aorta measure 180 cm/sec. Proximal aorta measures2.24cm. in longitudinal Peak systolic flow velocities within the mid aorta axis. measure 198 cm/sec. Mid aorta measures1.68cm x 1.92cm. in cross- Peak systolic flow velocities within the distal sectional axis. aorta measure 210 cm/sec. Mid aorta measures1.62cm. in longitudinal axis. Distal aorta measures1.34cm x 1.75cm. in cross- sectional axis. Distal aorta measures1.60cm. in longitudinal axis. Left Iliac Artery Unable to visualize Lt ARMANDO. Right Iliac Artery Right iliac artery measures 0.86cm x 1.04 cm. in the cross-sectional axis. Peak systolic velocity in the right iliac artery measures 173 cm/sec. Procedure Aorta IVC Iliac vasculature or bypass grafts [id number]. Very technically difficult and limited due to patient body habitus and bowel gas. Exam performed in department. VL/Abd Aortic/IVC Duplex scan Interpretation Summary No evidence of aortic iliac aneurysm. Elevated velocities throughout the aorta at 210 cm/s. Mild right common iliac and 173. Left common iliac unable to visualize. Ordering Physician: Momo Child Referring Physician: Scar Hutton Performed By: Rachel Dejesus, NUPUR, RVT
--- NOTE | 2022-03-18 07:52 | CDU_ITS ---
Reason For Study: s/p Rt CEA Rt. Velocities/BP Lt. Velocities/BP Prox CCA 110/31 cm/sec. Prox CCA 114/13 cm/sec. Mid CCA 76/22 cm/sec. Mid CCA 114/14 cm/sec. Dist CCA 76/22 cm/sec. Dist CCA 63/4 cm/sec. Prox ICA 84/30 cm/sec. Prox ICA 0 cm/sec. Mid ICA 127/32 cm/sec. Mid ICA 0 cm/sec. Dist ICA 127/47 cm/sec. Dist ICA 0 cm/sec. Rt. ICA/CCA = 1.7. Prox ECA 155/15 cm/sec. Prox ECA 230/20 cm/sec. Lt. Vert. 68/17 cm/sec. Rt. Vert. 37/9 cm/sec. Right Extracranial There is heterogeneous, irregular atherosclerotic plaque noted in the right common carotid artery. There is heterogeneous, smooth atherosclerotic plaque noted in the right internal carotid artery. There is homogeneous, smooth atherosclerotic plaque noted in the right external carotid artery. Antegrade flow is noted in the right vertebral artery. Left Extracranial There is heterogeneous, irregular atherosclerotic plaque noted in the left common carotid artery. There is heterogeneous, irregular atherosclerotic plaque noted in the left internal carotid artery. The left internal carotid artery is occluded. There is homogeneous, smooth atherosclerotic plaque noted in the left external carotid artery. Antegrade flow is noted in the left vertebral artery. Procedure Carotid Duplex [id number]. This is a Carotid Duplex examination using B-mode, color flow and specral Doppler. Exam performed in department. VL/Carotid Duplex Ultrasound Interpretation Summary Moderate (50-69%) stenosis right extracranial internal carotid. The left international representative al carotid artery appears to be totally occluded. Flow within the vertebral arteries is antegrade bilaterally. Ordering Physician: Momo Child Referring Physician: Scar Hutton Performed By: Rachel Dejesus, RDCS, RVT
--- NOTE | 2022-03-18 07:52 | ART_ITS ---
Reason For Study: Smoker, PVD Procedure A bilateral lower extremity continuous wave Doppler with analog waveform analysis and ankle brachial indexes. Left Segmental Pressures Left brachial= 168mmHg. Left posterior tibial artery = 119mmHg. Left dorsalis pedis artery = 113mmHg. Left digit = 115 mmHg. Right Segmental Pressures Right brachial= 167mmHg. Right posterior tibial artery = 88mmHg. Right dorsalis pedis artery = 97mmHg. Right digit = 83 mmHg. Indices The right ankle brachial index by the posterior tibial artery is 0.52. The right ankle brachial index by the dorsalis pedis is 0.58. The right digital-brachial index is 0.49. The left ankle brachial index by the posterior tibial artery is 0.71. The left ankle brachial index by the dorsalis pedis is 0.67. The left digital-brachial index is 0.68. VL/Ankle Brachial Index Interpretation Summary Bilateral lower extremities with moderate occlusive disease with bilateral mono phasic flow noted. JESSICA 0.58 and 0.71. Ordering Physician: Momo Child Referring Physician: Momo Child Performed By: Rachel Dejesus RDCS/RVT
== END | disposition home or self-care (01) ==
PROVIDERS: PCP Family Medicine; Referring Provider Surgery Vascular Surgery; Visit Provider Surgery Vascular Surgery
DX: I65.23 Occlusion and stenosis of bilateral carotid arteries (principal); I73.9 Peripheral vascular disease, unspecified; F17.210 Nicotine dependence, cigarettes, uncomplicated; Z95.828 Presence of other vascular implants and grafts
CPT/HCPCS: 93880; 93922; 93978

== ENCOUNTER 2022-03-28 08:33 | Outpatient (RCR) | payer MEDICARE, SELFPAY ==
[2017-02-18 11:18] VITALS: BMI 37.9
[2022-02-26 22:02] VITALS: BMI 41.6
[2022-02-28 07:11] LABS: INR Fingerstick 2.3; Prothrombin Time Fingerstick 26.5 SEC (11.7-14.9)
[2022-03-28 08:46] LABS: INR Fingerstick 1.9; Prothrombin Time Fingerstick 22.8 SEC (11.7-14.9)
== END 2022-03-28 16:00 | disposition home or self-care (01) ==
LOC: MTLAB 08:33
PROVIDERS: Family Provider Family Medicine; PCP Family Medicine; Referring Provider Family Medicine; Visit Provider Family Medicine
DX: I48.91 Unspecified atrial fibrillation (principal)
CPT/HCPCS: 36416; 85610

== ENCOUNTER 2022-04-25 07:07 | Outpatient (RCR) | payer MEDICARE, SELFPAY ==
[2017-02-18 11:18] VITALS: BMI 37.9
[2022-03-29 10:06] VITALS: BMI 41.6
[2022-04-25 14:17] LABS: INR Fingerstick 1.7; Prothrombin Time Fingerstick 20.3 SEC (11.7-14.9)
== END 2022-04-28 03:48 | disposition home or self-care (01) ==
LOC: MTLAB 07:07
PROVIDERS: Family Provider Family Medicine; PCP Family Medicine; Referring Provider Family Medicine; Visit Provider Family Medicine
DX: I48.91 Unspecified atrial fibrillation (principal)
CPT/HCPCS: 36416; 85610

== ENCOUNTER 2022-05-23 09:22 | Outpatient (RCR) | payer MEDICARE, SELFPAY ==
[2017-02-18 11:18] VITALS: BMI 37.9
[2022-04-28 03:48] VITALS: BMI 41.6
[2022-05-23 09:31] LABS: INR Fingerstick 2.1; Prothrombin Time Fingerstick 24.8 SEC (11.7-14.9)
== END 2022-05-23 18:00 | disposition home or self-care (01) ==
LOC: MTLAB 09:22
PROVIDERS: Family Provider Family Medicine; PCP Family Medicine; Referring Provider Family Medicine; Visit Provider Family Medicine
DX: I48.91 Unspecified atrial fibrillation (principal)
CPT/HCPCS: 36416; 85610

== ENCOUNTER 2022-06-20 09:14 | Outpatient (RCR) | payer MEDICARE, SELFPAY ==
[2017-02-18 11:18] VITALS: BMI 37.9
[2022-05-30 01:12] VITALS: BMI 41.6
[2022-06-20 09:30] LABS: INR Fingerstick 1.9; Prothrombin Time Fingerstick 22.9 SEC (11.7-14.9)
== END 2022-06-20 18:00 | disposition home or self-care (01) ==
LOC: MTLAB 09:14
PROVIDERS: Family Provider Family Medicine; PCP Family Medicine; Referring Provider Family Medicine; Visit Provider Family Medicine
DX: I48.91 Unspecified atrial fibrillation (principal)
CPT/HCPCS: 36416; 85610

== ENCOUNTER 2022-08-15 10:42 | Outpatient (RCR) | payer MEDICARE, SELFPAY ==
[2017-02-18 11:18] VITALS: BMI 37.9
[2022-06-29 04:11] VITALS: BMI 41.6
[2022-08-15 10:50] LABS: INR Fingerstick 2.2; Prothrombin Time Fingerstick 25.7 SEC (11.7-14.9)
== END 2022-08-28 18:00 | disposition home or self-care (01) ==
LOC: MTLAB 10:42
PROVIDERS: Family Provider Family Medicine; PCP Family Medicine; Referring Provider Family Medicine; Visit Provider Family Medicine
DX: I48.91 Unspecified atrial fibrillation (principal)
CPT/HCPCS: 36416; 85610

== ENCOUNTER 2022-09-13 10:15 | Outpatient (RCR) | payer MEDICARE, SELFPAY ==
[2017-02-18 11:18] VITALS: BMI 37.9
[2022-08-29 02:37] VITALS: BMI 41.6
[2022-09-13 11:21] LABS: INR Fingerstick 2.8; Prothrombin Time Fingerstick 32.1 SEC (11.7-14.9)
== END 2022-09-13 18:00 | disposition home or self-care (01) ==
LOC: MTLAB 10:15
PROVIDERS: Family Provider Family Medicine; PCP Family Medicine; Referring Provider Family Medicine; Visit Provider Family Medicine
DX: I48.91 Unspecified atrial fibrillation (principal)
CPT/HCPCS: 36416; 85610

== ENCOUNTER 2022-10-11 13:00 | Outpatient (RCR) | payer MEDICARE, SELFPAY ==
[2017-02-18 11:18] VITALS: BMI 37.9
[2022-09-29 06:41] VITALS: BMI 41.6
[2022-10-11 13:20] LABS: INR Fingerstick 2.6; Prothrombin Time Fingerstick 29.6 SEC (11.7-14.9)
== END 2022-10-11 15:00 | disposition home or self-care (01) ==
LOC: MTLAB 13:00
PROVIDERS: Family Provider Family Medicine; PCP Family Medicine; Referring Provider Family Medicine; Visit Provider Family Medicine
DX: I48.91 Unspecified atrial fibrillation (principal)
CPT/HCPCS: 36416; 85610

== ENCOUNTER 2022-11-08 10:32 | Outpatient (RCR) | payer MEDICARE, SELFPAY ==
[2017-02-18 11:18] VITALS: BMI 37.9
[2022-10-30 07:27] VITALS: BMI 41.6
[2022-11-08 14:55] LABS: INR Fingerstick 2.4; Prothrombin Time Fingerstick 27.9 SEC (11.7-14.9)
== END 2022-11-08 18:00 | disposition home or self-care (01) ==
LOC: MTLAB 10:32
PROVIDERS: Family Provider Family Medicine; PCP Family Medicine; Referring Provider Family Medicine; Visit Provider Family Medicine
DX: I48.91 Unspecified atrial fibrillation (principal)
CPT/HCPCS: 36416; 85610

== ENCOUNTER 2022-12-06 11:24 | Outpatient (RCR) | payer MEDICARE, SELFPAY ==
[2017-02-18 11:18] VITALS: BMI 37.9
[2022-11-26 23:26] VITALS: BMI 41.6
[2022-12-10 15:01] LABS: INR Fingerstick 2.2; Prothrombin Time Fingerstick 26.2 SEC (11.7-14.9)
== END 2022-12-27 21:05 | disposition home or self-care (01) ==
LOC: MTLAB 11:24
PROVIDERS: Family Provider Family Medicine; PCP Family Medicine; Referring Provider Family Medicine; Visit Provider Family Medicine
DX: I48.91 Unspecified atrial fibrillation (principal)
CPT/HCPCS: 36416; 85610

== ENCOUNTER 2023-01-02 07:07 | Outpatient (RCR) | payer MEDICARE, SELFPAY ==
[2017-02-18 11:18] VITALS: BMI 37.9
[2022-12-27 21:05] VITALS: BMI 41.6
[2023-01-02 10:07] LABS: ALB/GLOB Ratio 0.9 RATIO (0.9-2.4); AST(SGOT) 19 U/L (15-37); Alanine Aminotransfer ALT/SGPT 28 U/L (13-56); Albumin, Serum 3.6 g/dL (3.2-5.0); Alkaline Phosphatase 92 U/L (45-117); Anion Gap 10 (5-15); BUN 16 mg/dL (7-18); BUN/Creat Ratio 20.4 RATIO (10-20); Calcium,Total 9.2 mg/dL (8.5-10.1); Chloride 97 mmol/L (98-107); Cholesterol 205 mg/dL (200); Creatinine, Serum 0.78 mg/dL (0.55-1.02); EST Glomerular Filtration Rate 80 mL/min (>60); Est Glom Filt Rate - Afr Amer 96 mL/min (>60); Glucose 146 mg/dL (74-106); High Density Lipoprotein 40 mg/dL; Potassium 3.8 mmol/L (3.5-5.1); Protein, Total 7.6 g/dL (6.4-8.2); Sodium Level 133 mmol/L (136-145); Triglycerides 154 mg/dL; Very Low Density Lipoprotein 31 mg/dL (5-40)
[2023-01-02 10:09] LABS: International Normalized Ratio 2.3; Prothrombin Time (Protime)PT. 25.1 SECONDS (11.7-14.9)
[2023-01-02 10:12] LABS: Hemoglobin A1c 7.5 % (3.8-5.6)
== END 2023-01-26 05:30 | disposition home or self-care (01) ==
LOC: MTLAB 07:07
PROVIDERS: Family Provider Family Medicine; PCP Family Medicine; Referring Provider Family Medicine; Visit Provider Family Medicine
DX: I48.91 Unspecified atrial fibrillation (principal); E11.69 Type 2 diabetes mellitus with other specified complication
CPT/HCPCS: 36415; 80053; 80061; 83036; 85610

== ENCOUNTER 2023-01-31 08:53 | Outpatient (RCR) | payer MEDICARE, SELFPAY ==
[2017-02-18 11:18] VITALS: BMI 37.9
[2023-01-26 05:30] VITALS: BMI 41.6
[2023-01-31 09:00] LABS: INR Fingerstick 2.7; Prothrombin Time Fingerstick 29.5 SEC (11.7-14.9)
== END 2023-01-31 09:53 | disposition home or self-care (01) ==
LOC: MTLAB 08:53
PROVIDERS: Family Provider Family Medicine; PCP Family Medicine; Referring Provider Family Medicine; Visit Provider Family Medicine
DX: I48.91 Unspecified atrial fibrillation (principal)
CPT/HCPCS: 36416; 85610

== ENCOUNTER 2023-02-27 09:27 | Outpatient (RCR) | payer MEDICARE, SELFPAY ==
[2017-02-18 11:18] VITALS: BMI 37.9
[2023-02-27 08:19] VITALS: BMI 41.6
[2023-02-27 09:59] LABS: INR Fingerstick 2.6; Prothrombin Time Fingerstick 27.9 SEC (11.7-14.9)
== END 2023-02-27 18:00 | disposition home or self-care (01) ==
LOC: MTLAB 09:27
PROVIDERS: Family Provider Family Medicine; PCP Family Medicine; Referring Provider Family Medicine; Visit Provider Family Medicine
DX: I48.91 Unspecified atrial fibrillation (principal); E11.69 Type 2 diabetes mellitus with other specified complication; E78.2 Mixed hyperlipidemia
CPT/HCPCS: 36416; 85610

== ENCOUNTER 2023-04-11 10:17 | Outpatient (RCR) | payer MEDICARE, SELFPAY ==
[2017-02-18 11:18] VITALS: BMI 37.9
[2023-03-29 02:53] VITALS: BMI 41.6
[2023-04-11 10:34] LABS: INR Fingerstick 1.2; Prothrombin Time Fingerstick 13.9 SEC (11.7-14.9)
== END 2023-04-28 18:00 | disposition home or self-care (01) ==
LOC: MTLAB 10:17
PROVIDERS: Family Provider Family Medicine; PCP Family Medicine; Referring Provider Family Medicine; Visit Provider Family Medicine
DX: I48.91 Unspecified atrial fibrillation (principal)
CPT/HCPCS: 36416; 85610

== ENCOUNTER → 2023-04-18 | Outpatient (CLI) | payer MEDICARE, SELFPAY ==
[2017-02-18 11:18] VITALS: BMI 37.9
--- NOTE | 2023-04-18 07:41 | ART_ITS ---
Reason For Study: PVD Procedure A bilateral lower extremity continuous wave Doppler with analog waveform analysis and ankle brachial indexes. Left Segmental Pressures Left brachial= 158mmHg. Left posterior tibial artery = 84mmHg. Left dorsalis pedis artery = 78mmHg. Left digit = 76 mmHg. The left dorsalis pedis waveforms are monophasic. The left posterior tibial artery waveforms are monophasic. Right Segmental Pressures Right brachial= 162mmHg. Right posterior tibial artery = 69mmHg. Right dorsalis pedis artery = 73mmHg. Right digit = 47 mmHg. The right dorsalis pedis waveforms are monophasic. The right posterior tibial artery waveforms are monophasic. Indices The right ankle brachial index by the dorsalis pedis is 0.45. The right ankle brachial index by the posterior tibial artery is 0.43. The right digital-brachial index is 0.29. The left ankle brachial index by the dorsalis pedis is 0.48. The left ankle brachial index by the posterior tibial artery is 0.52. The left digital-brachial index is 0.47. VL/Ankle Brachial Index Interpretation Summary Bilateral moderate PAD with JESSICA 0.45/0.52. Ordering Physician: Momo Child Referring Physician: Scar Hutton MD Performed By: Nancy Guardado RVT
--- NOTE | 2023-04-18 07:41 | AAVD_ITS ---
Reason For Study: PVD Aorta Measurements Aorta Doppler Measurements Proximal aorta measures1.71 x 1.73cm. in cross- Peak systolic flow velocities within the proximal sectional axis. aorta measure 88.6 cm/sec. Proximal aorta measures1.73cm. in longitudinal Peak systolic flow velocities within the mid aorta axis. measure 116.1 cm/sec. Mid aorta measures1.73 x 1.73cm. in cross- Peak systolic flow velocities within the distal sectional axis. aorta measure 203.4 cm/sec. Mid aorta measures1.76cm. in longitudinal axis. Distal aorta measures1.33 x 1.36cm. in cross- sectional axis. Distal aorta measures1.31cm. in longitudinal axis. Left Iliac Artery Left iliac artery measures 0.85 x 0.96 cm. in the cross-sectional axis. Left iliac artery measures 0.90 cm. in the longitudinal axis. Peak systolic velocity in the left iliac artery measures 140.7 cm/sec. Right Iliac Artery Right iliac artery measures 0.75 x 0.75 cm. in the cross-sectional axis. Right iliac artery measures 0.76 cm. in the longitudinal axis. Peak systolic velocity in the right iliac artery measures 83.7 cm/sec. Procedure Aorta IVC Iliac vasculature or bypass grafts [id number]. Technically difficult study due to body habitus and bowel gas. Exam performed in department. VL/Abd Aortic/IVC Duplex scan Interpretation Summary Normal aorta iliac with no aneurysm or stenosis visualized. Ordering Physician: Momo Child Referring Physician: Scar Hutton MD Performed By: Nancy Guardado RVT
--- NOTE | 2023-04-18 07:41 | CDU_ITS ---
Reason For Study: Carotid stenosis Rt. Velocities/BP Lt. Velocities/BP Prox CCA 73/20.1 cm/sec. Prox CCA 85/15.7 cm/sec. Mid CCA 70.2/22 cm/sec. Mid CCA 79.5/12.4 cm/sec. Dist CCA 66.9/22.1 cm/sec. Dist CCA 42.8/6 cm/sec. Prox ICA 67.4/16.8 cm/sec. Prox ECA 130.2/18.8 cm/sec. Mid ICA 75.1/24.5 cm/sec. Lt. Vert. 43/13.3 cm/sec. Dist ICA 77.3/25.6 cm/sec. Rt. ICA/CCA = 1.10. Prox ECA 146.7/20.6 cm/sec. Rt. Vert. 32.5/7.2 cm/sec. Right Extracranial There is heterogeneous, irregular atherosclerotic plaque noted in the right common carotid artery. There is heterogeneous, smooth atherosclerotic plaque noted in the right internal carotid artery. There is homogeneous, smooth atherosclerotic plaque noted in the right external carotid artery. Antegrade flow is noted in the right vertebral artery. Left Extracranial There is heterogeneous, irregular atherosclerotic plaque noted in the left common carotid artery. There is heterogeneous, irregular atherosclerotic plaque noted in the left internal carotid artery. The left internal carotid artery is occluded. There is homogeneous, smooth atherosclerotic plaque noted in the left external carotid artery. Antegrade flow is noted in the left vertebral artery. Procedure Carotid Duplex [id number]. This is a Carotid Duplex examination using B-mode, color flow and specral Doppler. Exam performed in department. VL/Carotid Duplex Ultrasound Interpretation Summary Mild (<50%) stenosis right extracranial internal carotid. 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 Flow within the vertebral arteries is antegrade bilater ally. Ordering Physician: Momo Child Referring Physician: Scar Hutton MD Performed By: Willinger, Nancy, RVT
== END | disposition home or self-care (01) ==
LOC: CVS 07:40
PROVIDERS: PCP Family Medicine; Referring Provider Surgery Vascular Surgery; Visit Provider Surgery Vascular Surgery
DX: I65.23 Occlusion and stenosis of bilateral carotid arteries (principal); I73.9 Peripheral vascular disease, unspecified; I70.0 Atherosclerosis of aorta; F17.210 Nicotine dependence, cigarettes, uncomplicated
CPT/HCPCS: 93880; 93922; 93978

== ENCOUNTER 2023-05-08 11:04 | Outpatient (RCR) | payer MEDICARE, SELFPAY ==
[2017-02-18 11:18] VITALS: BMI 37.9
[2023-04-29 02:33] VITALS: BMI 41.6
[2023-05-08 14:15] LABS: INR Fingerstick 2.7; Prothrombin Time Fingerstick 28.6 SEC (11.7-14.9)
== END 2023-05-08 18:00 | disposition home or self-care (01) ==
LOC: MTLAB 11:04
PROVIDERS: Family Provider Family Medicine; PCP Family Medicine; Referring Provider Family Medicine; Visit Provider Family Medicine
DX: I48.91 Unspecified atrial fibrillation (principal)
CPT/HCPCS: 36416; 85610

== ENCOUNTER 2023-06-05 09:59 | Outpatient (RCR) | payer MEDICARE, SELFPAY ==
[2017-02-18 11:18] VITALS: BMI 37.9
[2023-05-30 02:24] VITALS: BMI 41.6
[2023-06-05 10:15] LABS: Prothrombin Time Fingerstick 32.6 SEC (11.7-14.9)
== END 2023-06-05 18:00 | disposition home or self-care (01) ==
LOC: MTLAB 09:59
PROVIDERS: Family Provider Family Medicine; PCP Family Medicine; Referring Provider Family Medicine; Visit Provider Family Medicine
DX: I48.91 Unspecified atrial fibrillation (principal)
CPT/HCPCS: 36416; 85610

== ENCOUNTER 2023-07-04 10:49 | Outpatient (RCR) | payer MEDICARE, SELFPAY ==
[2017-02-18 11:18] VITALS: BMI 37.9
[2023-06-29 05:12] VITALS: BMI 41.6
[2023-07-04 11:00] LABS: INR Fingerstick 2.8; Prothrombin Time Fingerstick 30.3 SEC (11.7-14.9)
== END 2023-07-04 18:00 | disposition home or self-care (01) ==
LOC: MTLAB 10:49
PROVIDERS: Family Provider Family Medicine; PCP Family Medicine; Referring Provider Family Medicine; Visit Provider Family Medicine
DX: I48.91 Unspecified atrial fibrillation (principal)
CPT/HCPCS: 36416; 85610

== ENCOUNTER 2023-08-01 09:22 | Outpatient (RCR) | payer MEDICARE, SELFPAY ==
[2017-02-18 11:18] VITALS: BMI 37.9
[2023-07-29 23:20] VITALS: BMI 41.6
[2023-08-01 09:27] LABS: INR Fingerstick 2.8; Prothrombin Time Fingerstick 30.5 SEC (11.7-14.9)
== END 2023-08-28 18:00 | disposition home or self-care (01) ==
LOC: MTLAB 09:22
PROVIDERS: Family Provider Family Medicine; PCP Family Medicine; Referring Provider Family Medicine; Visit Provider Family Medicine
DX: I48.91 Unspecified atrial fibrillation (principal)
CPT/HCPCS: 36416; 85610

== ENCOUNTER 2023-09-26 10:12 | Outpatient (RCR) | payer MEDICARE, SELFPAY ==
[2017-02-18 11:18] VITALS: BMI 37.9
[2023-08-29 04:24] VITALS: BMI 41.6
[2023-08-29 09:38] LABS: INR Fingerstick 2.6; Prothrombin Time Fingerstick 27.9 SEC (11.7-14.9)
[2023-09-26 10:19] LABS: INR Fingerstick 2.7; Prothrombin Time Fingerstick 29.5 SEC (11.7-14.9)
== END 2023-09-28 18:00 | disposition home or self-care (01) ==
LOC: MTLAB 10:12
PROVIDERS: Family Provider Family Medicine; PCP Family Medicine; Referring Provider Family Medicine; Visit Provider Family Medicine
DX: I48.91 Unspecified atrial fibrillation (principal); E11.69 Type 2 diabetes mellitus with other specified complication; E78.2 Mixed hyperlipidemia
CPT/HCPCS: 36416; 85610

== ENCOUNTER 2023-11-07 10:15 | Outpatient (RCR) | payer MEDICARE, SELFPAY ==
[2017-02-18 11:18] VITALS: BMI 37.9
[2023-09-28 23:45] VITALS: BMI 41.6
[2023-10-31 09:47] LABS: INR Fingerstick 1.8; Prothrombin Time Fingerstick 19.7 SEC (11.7-14.9)
[2023-11-07 10:22] LABS: INR Fingerstick 3.4; Prothrombin Time Fingerstick 36.3 SEC (11.7-14.9)
== END 2023-11-27 18:00 | disposition home or self-care (01) ==
LOC: MTLAB 10:15
PROVIDERS: Family Provider Family Medicine; PCP Family Medicine; Referring Provider Family Medicine; Visit Provider Family Medicine
DX: I48.91 Unspecified atrial fibrillation (principal)
CPT/HCPCS: 36416; 85610

== ENCOUNTER 2023-12-19 10:35 | Outpatient (RCR) | payer MEDICARE, SELFPAY ==
[2017-02-18 11:18] VITALS: BMI 37.9
[2023-11-28 02:28] VITALS: BMI 41.6
[2023-12-19 12:01] LABS: International Normalized Ratio 2.9; Prothrombin Time (Protime)PT. 30.3 SECONDS (11.7-14.9)
== END 2023-12-28 02:14 | disposition home or self-care (01) ==
LOC: MTLAB 10:35
PROVIDERS: Family Provider Family Medicine; PCP Family Medicine; Referring Provider Family Medicine; Visit Provider Family Medicine
DX: I48.91 Unspecified atrial fibrillation (principal)
CPT/HCPCS: 36415; 85610

== ENCOUNTER 2024-01-19 07:16 | Outpatient (RCR) | payer MEDICARE, SELFPAY ==
[2017-02-18 11:18] VITALS: BMI 37.9
[2023-12-28 02:14] VITALS: BMI 41.6
[2024-01-19 10:13] LABS: International Normalized Ratio 3.1; Prothrombin Time (Protime)PT. 31.9 SECONDS (11.7-14.9)
[2024-01-19 10:47] LABS: ALB/GLOB Ratio 0.9 RATIO (0.9-2.4); AST(SGOT) 19 U/L (15-37); Alanine Aminotransfer ALT/SGPT 34 U/L (13-56); Albumin, Serum 3.7 g/dL (3.2-5.0); Alkaline Phosphatase 93 U/L (45-117); Anion Gap 6 (5-15); BUN 13 mg/dL (7-18); BUN/Creat Ratio 18.5 RATIO (10-20); Calcium,Total 9.4 mg/dL (8.5-10.1); Chloride 102 mmol/L (98-107); Cholesterol 188 mg/dL (200); EST Glomerular Filtration Rate 90 mL/min (>60); Est Glom Filt Rate - Afr Amer 108 mL/min (>60); Glucose 128 mg/dL (74-106); High Density Lipoprotein 44 mg/dL; Potassium 4.9 mmol/L (3.5-5.1); Protein, Total 7.7 g/dL (6.4-8.2); Sodium Level 137 mmol/L (136-145); Triglycerides 134 mg/dL; Very Low Density Lipoprotein 27 mg/dL (5-40)
[2024-01-19 13:17] LABS: Hemoglobin A1c 6.4 % (3.8-5.6)
== END 2024-01-27 22:33 | disposition home or self-care (01) ==
LOC: MTLAB 07:16
PROVIDERS: Family Provider Family Medicine; PCP Family Medicine; Referring Provider Family Medicine; Visit Provider Family Medicine
DX: I48.91 Unspecified atrial fibrillation (principal); I10 Essential (primary) hypertension; E11.69 Type 2 diabetes mellitus with other specified complication
CPT/HCPCS: 36415; 80053; 80061; 83036; 85610

== ENCOUNTER 2024-02-13 10:08 | Outpatient (RCR) | payer MEDICARE, SELFPAY ==
[2017-02-18 11:18] VITALS: BMI 37.9
[2024-01-27 22:33] VITALS: BMI 41.6
[2024-02-13 10:15] LABS: INR Fingerstick 3.3; Prothrombin Time Fingerstick 35.5 SEC (11.7-14.9)
== END 2024-02-27 18:00 | disposition home or self-care (01) ==
LOC: MTLAB 10:08
PROVIDERS: Family Provider Family Medicine; PCP Family Medicine; Referring Provider Family Medicine; Visit Provider Family Medicine
DX: I48.91 Unspecified atrial fibrillation (principal)
CPT/HCPCS: 36416; 85610

== ENCOUNTER 2024-03-12 08:13 | Outpatient (RCR) | payer MEDICARE, SELFPAY ==
[2017-02-18 11:18] VITALS: BMI 37.9
[2024-03-01 08:45] VITALS: BMI 41.6
[2024-03-16 17:26] LABS: INR Fingerstick 3.1; Prothrombin Time Fingerstick 30.9 SEC (11.7-14.9)
== END 2024-03-12 18:00 | disposition home or self-care (01) ==
LOC: MTLAB 08:13
PROVIDERS: Family Provider Family Medicine; PCP Family Medicine; Referring Provider Family Medicine; Visit Provider Family Medicine
DX: I48.91 Unspecified atrial fibrillation (principal)
CPT/HCPCS: 36416; 85610

== ENCOUNTER 2024-04-19 11:02 | Outpatient (RCR) | payer MEDICARE, SELFPAY ==
[2017-02-18 11:18] VITALS: BMI 37.9
[2024-03-29 04:41] VITALS: BMI 41.6
[2024-04-19 11:20] LABS: INR Fingerstick 2.6; Prothrombin Time Fingerstick 26.3 SEC (11.7-14.9)
== END 2024-04-28 18:00 | disposition home or self-care (01) ==
LOC: MTLAB 11:02
PROVIDERS: Family Provider Family Medicine; PCP Family Medicine; Referring Provider Family Medicine; Visit Provider Family Medicine
DX: I48.91 Unspecified atrial fibrillation (principal)
CPT/HCPCS: 36416; 85610

== ENCOUNTER → 2024-04-19 | Outpatient (CLI) | payer MEDICARE, SELFPAY ==
[2017-02-18 11:18] VITALS: BMI 37.9
--- NOTE | 2024-04-19 09:38 | CDU_ITS ---
Reason For Study: Carotid Stenosis Rt. Velocities/BP Lt. Velocities/BP Prox CCA 99/27 cm/sec. Prox CCA 110/9 cm/sec. Mid CCA 86/20 cm/sec. Mid CCA 110/7 cm/sec. Dist CCA 88/19 cm/sec. Dist CCA 109/12 cm/sec. Prox ICA 102/14 cm/sec. Prox ICA 0 cm/sec. Mid ICA 104/35 cm/sec. Mid ICA 0 cm/sec. Dist ICA 120/30 cm/sec. Dist ICA 0 cm/sec. Rt. ICA/CCA = 1.4. Prox ECA 168/8 cm/sec. Prox ECA 319/17 cm/sec. Lt. Vert. 47/16 cm/sec. Rt. Vert. 36/8 cm/sec. Right Extracranial There is heterogeneous, smooth atherosclerotic plaque noted in the right common carotid artery. There is heterogeneous, smooth atherosclerotic plaque noted in the right internal carotid artery. There is homogeneous, smooth atherosclerotic plaque noted in the right external carotid artery. Antegrade flow is noted in the right vertebral artery. Left Extracranial There is heterogeneous, irregular atherosclerotic plaque noted in the left common carotid artery. There is heterogeneous, irregular atherosclerotic plaque noted in the left internal carotid artery. The left internal carotid artery is occluded. There is intimal thickening but no significant atherosclerotic plaque noted in the left external carotid artery. Antegrade flow is noted in the left vertebral artery. VL/Carotid Duplex Ultrasound Interpretation Summary Mild (<50%) stenosis right extracranial internal carotid. 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 Flow within the vertebral arteries is antegrade bilater ally. Ordering Physician: Momo Child Referring Physician: Scar Hutton Performed By: Rachel Dejseus, RDCS, RVT
--- NOTE | 2024-04-19 09:38 | ART_ITS ---
Reason For Study: Claudication Procedure A bilateral lower extremity continuous wave Doppler with analog waveform analysis and ankle brachial indexes. Left Segmental Pressures Left brachial= 142mmHg. Left posterior tibial artery = 58mmHg. Left dorsalis pedis artery = 86mmHg. Left digit = 64 mmHg. Right Segmental Pressures Right brachial= 136mmHg. Right posterior tibial artery = 58mmHg. Right dorsalis pedis artery = 72mmHg. Right digit = 75 mmHg. Indices The right ankle brachial index by the posterior tibial artery is 0.41. The right ankle brachial index by the dorsalis pedis is 0.51. The right digital-brachial index is 0.53. The left ankle brachial index by the posterior tibial artery is 0.41. The left ankle brachial index by the dorsalis pedis is 0.61. The left digital-brachial index is 0.45. VL/Ankle Brachial Index Interpretation Summary Resting ankle-brachial indices appear moderately abnormal bilaterally. Ordering Physician: Momo Child Referring Physician: Sacr Hutton Performed By: Rachel Dejesus RDCS/RVT
--- NOTE | 2024-04-19 09:56 | AAVD_ITS ---
Reason For Study: Atherosclerosis Aorta Measurements Aorta Doppler Measurements Proximal aorta measures1.95cm x 1.86cm. in cross- Peak systolic flow velocities within the proximal sectional axis. aorta measure 134 cm/sec. Proximal aorta measures1.80cm. in longitudinal Peak systolic flow velocities within the mid aorta axis. measure 38 cm/sec. Mid aorta measures1.30cm x 1.51cm. in cross- sectional axis. Mid aorta measures1.41cm. in longitudinal axis. Distal aorta measures1.95cm x 2.19cm. in cross- sectional axis. Distal aorta measures1.51cm. in longitudinal axis. Procedure Aorta IVC Iliac vasculature or bypass grafts 43134. Technically difficult and technically limited study due to patient body habitus and bowel gas Unable to visualize ARMANDO bilaterally Anechoic, non vascular structure noted in liver measuring 4.10cm x 4.17cm. Exam performed in department. VL/Abd Aortic/IVC Duplex scan Interpretation Summary Aortic normal and no aneurysm or stenosis. Unable to visualize iliacs. Anechoic non vascular 4cm lesion liver. Ordering Physician: Momo Child Referring Physician: Scar Hutton Performed By: Rachel Dejesus, NUPUR, RVT
== END | disposition home or self-care (01) ==
LOC: CVS 09:35
PROVIDERS: PCP Family Medicine; Referring Provider Surgery Vascular Surgery; Visit Provider Surgery Vascular Surgery
DX: I70.213 Atherosclerosis of native arteries of extremities with intermittent claudication, bilateral legs (principal); I48.91 Unspecified atrial fibrillation; I65.23 Occlusion and stenosis of bilateral carotid arteries; I70.0 Atherosclerosis of aorta
CPT/HCPCS: 36416; 85610; 93880; 93922; 93978

== ENCOUNTER 2024-05-21 07:02 | Outpatient (RCR) | payer MEDICARE, SELFPAY ==
[2017-02-18 11:18] VITALS: BMI 37.9
[2024-04-28 23:36] VITALS: BMI 41.6
[2024-05-13 07:10] LABS: INR Fingerstick 3.5; Prothrombin Time Fingerstick 34.3 SEC (11.7-14.9)
[2024-05-21 07:11] LABS: INR Fingerstick 3.1
== END 2024-05-21 18:00 | disposition home or self-care (01) ==
LOC: MTLAB 07:02
PROVIDERS: Family Provider Family Medicine; PCP Family Medicine; Referring Provider Family Medicine; Visit Provider Family Medicine
DX: I48.91 Unspecified atrial fibrillation (principal)
CPT/HCPCS: 36416; 85610

== ENCOUNTER 2024-06-18 07:05 | Outpatient (RCR) | payer MEDICARE, SELFPAY ==
[2017-02-18 11:18] VITALS: BMI 37.9
[2024-05-29 21:58] VITALS: BMI 41.6
[2024-06-07 07:40] LABS: INR Fingerstick 3.1; Prothrombin Time Fingerstick 31.3 SEC (11.7-14.9)
[2024-06-21 13:04] LABS: Prothrombin Time Fingerstick 29.8 SEC (11.7-14.9)
== END 2024-06-18 18:00 | disposition home or self-care (01) ==
LOC: MTLAB 07:05
PROVIDERS: Family Provider Family Medicine; PCP Family Medicine; Referring Provider Family Medicine; Visit Provider Family Medicine
DX: I48.91 Unspecified atrial fibrillation (principal)
CPT/HCPCS: 36416; 85610

== ENCOUNTER 2024-08-06 07:11 | Outpatient (RCR) | payer MEDICARE, SELFPAY ==
[2017-02-18 11:18] VITALS: BMI 37.9
[2024-06-29 05:03] VITALS: BMI 41.6
[2024-08-06 07:26] LABS: INR Fingerstick 2.8; Prothrombin Time Fingerstick 28.1 SEC (11.7-14.9)
== END 2024-08-28 18:00 | disposition home or self-care (01) ==
LOC: MTLAB 07:11
PROVIDERS: Family Provider Family Medicine; PCP Family Medicine; Referring Provider Family Medicine; Visit Provider Family Medicine
DX: I48.91 Unspecified atrial fibrillation (principal)
CPT/HCPCS: 36416; 85610

== ENCOUNTER 2024-09-10 14:32 | Outpatient (RCR) | payer MEDICARE, SELFPAY ==
[2017-02-18 11:18] VITALS: BMI 37.9
[2024-08-29 03:09] VITALS: BMI 41.6
[2024-09-10 14:49] LABS: INR Fingerstick 3.4
== END 2024-09-10 18:00 | disposition home or self-care (01) ==
LOC: MTLAB 14:32
PROVIDERS: Family Provider Family Medicine; PCP Family Medicine; Referring Provider Family Medicine; Visit Provider Family Medicine
DX: I48.91 Unspecified atrial fibrillation (principal)
CPT/HCPCS: 36416; 85610

== ENCOUNTER 2024-10-25 13:05 | Outpatient (RCR) | payer MEDICARE, SELFPAY ==
[2017-02-18 11:18] VITALS: BMI 37.9
[2024-09-29 05:26] VITALS: BMI 41.6
[2024-10-25 13:38] LABS: INR Fingerstick 4.1
[2024-10-25 15:21] LABS: Prothrombin Time (Protime)PT. 39.5 SECONDS (11.7-14.9)
== END 2024-10-25 18:00 | disposition home or self-care (01) ==
LOC: MTLAB 13:05
PROVIDERS: Family Provider Family Medicine; PCP Family Medicine; Referring Provider Family Medicine; Visit Provider Family Medicine
DX: I48.91 Unspecified atrial fibrillation (principal)

== ENCOUNTER 2024-11-17 11:10 | Outpatient (RCR) | payer MEDICARE, SELFPAY ==
[2017-02-18 11:18] VITALS: BMI 37.9
[2024-10-30 02:42] VITALS: BMI 41.6
[2024-11-10 13:05] LABS: Prothrombin Time Fingerstick 39.9 SEC (11.7-14.9)
[2024-11-17 11:20] LABS: INR Fingerstick 2.3; Prothrombin Time Fingerstick 24.7 SEC (11.7-14.9)
== END 2024-11-26 18:00 | disposition home or self-care (01) ==
LOC: MTLAB 11:10
PROVIDERS: Family Provider Family Medicine; PCP Family Medicine; Referring Provider Family Medicine; Visit Provider Family Medicine
DX: I48.91 Unspecified atrial fibrillation (principal)
CPT/HCPCS: 36416; 85610

== ENCOUNTER 2024-12-13 13:18 | Outpatient (RCR) | payer MEDICARE, SELFPAY ==
[2017-02-18 11:18] VITALS: BMI 37.9
[2024-11-27 08:22] VITALS: BMI 41.6
[2024-12-13 15:36] LABS: Absolute Lymphocyte Count 2.27 X10^3/uL (0.83-4.51); Basophil# 0.07 X10^3/uL; Basophil% 0.7 % (0-1); Eosinophils% 3.2 % (0-5); Hematocrit 45.3 % (37-47); Hemoglobin 15.1 g/dL (12.0-15.0); Lymphocyte # 2.27 X10^3/ul (0.83-4.51); Mean Corp Hgb Conc 33.3 g/dL (32-36); Mean Corpuscular Hgb 28.4 pg (27.0-32.0); Mean Corpuscular Volume 85.2 fL (81-99); Mean Platelet Vol. 10.7 fl (6.2-12.0); Monocyte# 0.83 X10^3/uL; Monocyte% 8.8 % (0-10); NRBC Flagged by Analyzer 0 % (0-5); Neutrophil # 5.95 X10^3/uL (2.7-7.7); Neutrophil % 63.1 % (47-70); Platelet Count 251 K/mm3 (150-450); RBC Distribution Width CV 12.8 % (11.6-14.6); Red Blood Count 5.32 M/mm3 (4.2-5.4); White Blood Count 9.4 K/mm3 (4.4-11.0)
[2024-12-13 15:54] LABS: International Normalized Ratio 2.8; Prothrombin Time (Protime)PT. 29.8 SECONDS (11.7-14.9)
[2024-12-13 16:16] LABS: PTHIN 38 pg/mL (11-61)
[2024-12-13 16:30] LABS: Anion Gap 11 (5-15); BUN 10 mg/dL (4-19); BUN/Creat Ratio 13.1 RATIO (10-20); Calcium,Total 9.4 mg/dL (7.6-11.0); Carbon Dioxide 24.7 mmol/L (21.0-32.0); Chloride 99 mmol/L (98-108); Creatinine, Serum 0.79 mg/dL (0.70-1.20); EST Glomerular Filtration Rate 85 (>60); Glucose 165 mg/dL (70-99); Iron Binding Capacity,Total 323 ug/dL (250-450); Potassium 4.1 mmol/L (3.3-5.1); Sodium Level 135 mmol/L (133-145)
[2024-12-13 16:56] LABS: Protein, Urine (Random) 63.2 mg/dL (0.0-12.0); Protein:Creat Ratio 924 mg/g CRE (0-200)
[2024-12-13 18:25] LABS: Ferritin 212 ng/mL (22-378); Iron 45 ug/dL (50-170); Iron Binding Capacity,Unsat 278 ug/dL (228-428); PERCENT IRON SATURATION 13.9 % (13-59); Vitamin D,25 Hydroxy 30.3 ng/mL (30-100)
[2024-12-13 21:39] LABS: Uric Acid 4.9 mg/dL (2.6-6.0)
[2024-12-16 17:08] LABS: Immunoglobulin A 309 mg/dL (87-352); Immunoglobulin G 1236 mg/dL (586-1602); Immunoglobulin M 136 mg/dL (26-217); PROEL- A/G Ratio 0.9 (0.7-1.7); PROEL- Albumin 3.3 g/dL (2.9-4.4); PROEL- Alpha-1 Globulin 0.3 g/dL (0.0-0.4); PROEL- Alpha-2 Globulin 0.8 g/dL (0.4-1.0); PROEL- Beta Globulin 1.1 g/dL (0.7-1.3); PROEL- Gamma Globulin 1.2 g/dL (0.4-1.8); PROEL- Globulin, Total 3.5 g/dL (2.2-3.9); PROEL- TOTAL PROTEIN 6.8 g/dL (6.0-8.5); PROEL-M-Spike Not Observed g/dL (Not Observed); PROELU- Alpha-1-Globulin,Ur 9.3 % (.); PROELU- Alpha-2-Globulin,Ur 7.9 % (.); PROELU- Gamma Globulin, Ur 6.9 % (.); Total Protein, Ur 64.5 mg/dL (Not Estab.)
== END 2024-12-13 18:00 | disposition home or self-care (01) ==
LOC: MTLAB 13:18
PROVIDERS: Family Provider Family Medicine; PCP Family Medicine; Referring Provider Family Medicine; Visit Provider Family Medicine
DX: I48.91 Unspecified atrial fibrillation (principal); E21.1 Secondary hyperparathyroidism, not elsewhere classified; D63.1 Anemia in chronic kidney disease; N18.9 Chronic kidney disease, unspecified; I12.9 Hypertensive chronic kidney disease with stage 1 through stage 4 chronic kidney disease, or unspecified chronic kidney disease
CPT/HCPCS: 36415; 80048; 82306; 82570; 82728; 82784; 83540; 83550; 83970; 84156; 84165; 84166; 84550; 85025; 85610; 86334

== ENCOUNTER → 2025-01-04 | Outpatient (CLI) | payer MEDICARE, SELFPAY ==
[2017-02-18 11:18] VITALS: BMI 37.9
--- NOTE | 2025-01-04 12:20 | CT_ITS ---
PROCEDURE: CT ABD/PELVIS W/WO CONTRAST 01/04/2025 REASON FOR EXAM: CKD STAGE 3 TECHNIQUE: Abdomen and pelvis CT with intravenous contrast. Coronal and Sagittal reconstruction series were provided. PATIENT PREPARATION: Per protocol ORAL CONTRAST TYPE: None. CONTRAST: Isovue 370 VOLUME: 100 mL mL 18 gauge IV One or more dose reduction techniques were used (e.g., Automated exposure control, adjustment of the mA and/or kV according to patient size, use of iterative reconstruction technique. RADIATION DOSE SUMMARY: CTDlvol: 1599 mGy DLP: 4178 mGycm COMPARISON: None available FINDINGS: Lung bases: Calcified granuloma within the right lower lobe. Streaky opacity within the left lower lobe, likely representing atelectasis or scarring. Liver: Unremarkable Gallbladder: Unremarkable Spleen: Calcified granulomas within the spleen Pancreas: Unremarkable Adrenals: Unremarkable Kidneys: Kidneys are normal in size and configuration. No hydronephrosis. Simple cysts within bilateral kidneys. Bladder: No focal bladder wall thickening. Reproductive Organs: Postsurgical changes of a hysterectomy. Bowel: No aggressive osseous lesions. No acute fractures. Appendix: Unremarkable Lymph nodes: No lymphadenopathy Vasculature: Patent vasculature. Peritoneum / Retroperitoneum: Unremarkable Bones: No aggressive osseous lesions. No acute fractures. CT/CT Abd/Pelvis W/WO Contrast IMPRESSION: 1. No acute pathology within the abdomen or pelvis. 2. Diverticulosis within the sigmoid colon. 3. Simple cysts within bilateral kidneys. 4. Degenerative changes throughout the lumbar spine. Reading Location: [facility]
== END | disposition home or self-care (01) ==
PROVIDERS: PCP Family Medicine; Referring Provider Student in an Organized Health Care Education/Training Program; Visit Provider Student in an Organized Health Care Education/Training Program
DX: N18.30 Chronic kidney disease, stage 3 unspecified (principal)
CPT/HCPCS: 74178; Q9967

== ENCOUNTER 2025-01-31 07:09 | Outpatient (RCR) | payer MEDICARE, SELFPAY ==
[2017-02-18 11:18] VITALS: BMI 37.9
[2024-12-27 23:36] VITALS: BMI 41.6
[2025-02-15 13:18] LABS: INR Fingerstick 2.8; Prothrombin Time Fingerstick 29.1 SEC (11.7-14.9)
== END 2025-01-31 18:00 | disposition home or self-care (01) ==
LOC: MTLAB 07:09
PROVIDERS: Family Provider Family Medicine; PCP Family Medicine; Referring Provider Family Medicine; Visit Provider Family Medicine
DX: I48.91 Unspecified atrial fibrillation (principal)
CPT/HCPCS: 36416; 85610